=== PATIENT | male | born 1970 | race Caucasian/White ===

== ENCOUNTER 2024-01-30 08:56 | Emergency (ER) | payer SELFPAY ==
[~2024-01-30] VITALS: Ht 172.7 cm; Wt 56.0 kg
[2024-01-30 09:06] VITALS: BP 133/89
[2024-01-30 09:30] VITALS: BP 143/88
[2024-01-30] MEDS ORDERED: GUAIFENESIN 600 MG/TAB PO ONE (09:45)
[2024-01-30 10:00] VITALS: BP 131/83
[2024-01-30 10:30] VITALS: BP 152/82
[2024-01-30 11:00] VITALS: BP 130/76
[2024-01-30] MEDS ORDERED: NASACORT A55 MCG/ACT NS (11:13)
[2024-01-30] MEDS ORDERED: CLARITIN-D1 TAB PO (11:13)
[2024-01-30] MEDS ORDERED: MUCINEX1200 MG PO (11:15)
[2024-01-30 11:22] VITALS: BP 130/76
== END 2024-01-30 11:20 | disposition home or self-care (01) | DRG 153 ==
LOC: ED 08:56
DX: J32.9 Chronic sinusitis, unspecified (principal); Z72.0 Tobacco use; Z20.822 Contact with and (suspected) exposure to COVID-19